=== PATIENT | male | born 1985 | race African-American/Black ===

== ENCOUNTER 2016-11-16 18:09 | Emergency (ER) ==
[2016-11-16] MEDS ORDERED: BENADRYL IM ONE (19:04)
[2016-11-16] MEDS ORDERED: TORADOL IM ONE (19:04)
[2016-11-16] MEDS ORDERED: PHENERGAN IM ONE (19:04)
--- NOTE | 2016-11-16 19:06 | PROVIDER DOCUMENTATION ---
HPI-Headache - General Chief Complaint: Headache Stated Complaint: V/N HEADACHE Time Seen by Provider: 11/16/16 18:55 Source: patient Allergies/Adverse Reactions: Patient Allergies Allergy/AdvReac Type Severity Reaction Status Date / Time No Known Allergies Allergy Verified 05/09/15 00:47 Home Medications: Home Medication List Medication Instructions Recorded Confirmed Last Taken Type Alprazolam [Xanax] 0.25 mg PO DAILY 11/16/16 11/16/16 Unknown History Buprenorphine HCl/Naloxone HCl 8 mg PO 11/16/16 Unknown History [Suboxone 8 mg/2 mg Sl Film] Diazepam [Valium] 5 mg PO DAILY 11/16/16 11/16/16 Unknown History - History of Present Illness-Headache Nature of Presenting Problem: ONSET OF MIGRAINE HEADACHE LAST NIGHT. ALSO REPORTS N/V, PHOTOPHOBIA. STATES CURRENT HEADACHE SIMILAR TO PREVIOUS MIGRAINE. DENIES ANY HEAD INJURY. Headache Location: reports: frontal Quality of Pain: reports: aching, sharp, throbbing Severity: reports: moderate Onset/Duration: reports: last night Timing: reports: still present Headache Context: reports: nothing Headache History: reports: history of migraines Any recent trauma/injury?: reports: none Headache severity at the maximum: moderate Preceding Symptoms: denies: visual disturbances, scotoma, aura(s), typical of previous aura(s), none Headache Exacerbated by:: reports: light, noise Modifying Factors: improves with: nothing Associated Symptoms: reports: nausea, vomiting Similar Symptoms Previously?: Yes Recently seen or treated by another doctor?: No Review of Systems - Adult - REVIEW OF SYSTEMS - ADULT Constitutional: reports: no symptoms reported Eyes: reports: no symptoms reported Ears, Nose, Mouth & Throat: reports: no symptoms reported Cardiovascular: reports: no symptoms reported Respiratory: reports: no symptoms reported Gastrointestinal: reports: see HPI Genitourinary: reports: no symptoms reported Musculoskeletal: reports: no symptoms reported Integumentary: reports: no symptoms reported Neurological: reports: see HPI Psychiatric: reports: no symptoms reported Endocrine: reports: no symptoms reported Hematologic/Lymphatic: reports: no symptoms reported Allergic/Immunologic: reports: no symptoms reported Past History - Adult - PAST MEDICAL HISTORY-ADULT Review of Records: reports: Nursing Assessment Review, Medications Reviewed, Social history reviewed & non-contributory. Cardiovascular: reports: blood clots (involving bowel) Gastrointestinal: reports: colitis, GI bleed - PRIOR SURGERIES/PROCEDURES Surgical/Procedure History: reports: colonoscopy (2012), other (wisdom teeth) - IMMUNIZATION STATUS Childhood Immunizations: See Nurse Assessment Flu Vaccine: See Nurse Assessment Physical Exam- Neurological - Physical Exam-Neuro Initial Vital Signs Reviewed: Yes General Appearance: appears well, alert, no apparent distress Eye Exam: bilateral eye: normal inspection, PERRL, EOMI HENMT: moist mucous membranes, normal ENT inspection Head Injury: no evidence of injury Neck: non-tender, full range of motion, supple Respiratory: lungs clear, normal breath sounds Cardiovascular: regular rate, rhythm Lymphatic: no adenopathy Extremity: normal range of motion, normal gait movie extra Exam: normal hearing, normal speech, PERRL Coordination/Gait: normal gait Motor/Sensory: no motor deficit, no sensory deficit Neurologic: grossly normal, no motor/sensory deficits Integumentary: normal color, normal turgor, warm/dry Psych/Mental Status: normal mood/affect, normal thought content, normal thought process, oriented x 3 - Glascow Coma Scale Best Eye Response: (4) open spontaneously Best Verbal Response: (5) oriented Best Motor Response: (6) obeys commands Progress - PLAN OF CARE/RESULTS Progress/Plan/Lab Results: Orders Category Date Time Status Diphenhydramine [Benadryl] Med 11/16/16 19:04 Discontinued 25 mg IM NOW ONE Ketorolac [Toradol] Med 11/16/16 19:04 Discontinued 60 mg IM NOW ONE Promethazine [Phenergan] Med 11/16/16 19:04 Discontinued 25 mg IM NOW ONE Vital Signs - 24 hr 11/16/16 18:15 Temperature 98 F Pulse Rate 89 Respiratory 18 Rate Blood Pressure 132/90 O2 Sat by Pulse 99 Oximetry Departure - Departure Time of Disposition Order: 19:05 DIAGNOSIS: Migraine Qualifiers: Migraine type: without aura Status migrainosus presence: without status migrainosus Nausea & vomiting Qualifiers: Vomiting type: unspecified Disposition: HOME 01 Certified Medical Emergency: Emergent Condition: Good Referrals: Geoff Blood MD [STAFF PHYSICIAN] - (FOLLOW UP WITH DR. BLOOD FOR FURTHER MANAGEMENT OF MIGRAINE HEADACHES. ) Attestation - Physician/ JAKE Attestation Advanced Practice Provider:: Js Moreno
[2016-11-16 19:27] VITALS: BP 124/84
== END 2016-11-16 19:26 | disposition home or self-care (01) ==
LOC: P.ED 18:09
DX: G43.909 Migraine, unspecified, not intractable, without status migrainosus (principal); R11.2 Nausea with vomiting, unspecified; R51 Headache; H53.149 Visual discomfort, unspecified; Z79.899 Other long term (current) drug therapy; Z86.718 Personal history of other venous thrombosis and embolism
CPT/HCPCS: J1200; J1885; J2550